=== PATIENT | male | born 1965 | race American Indian/Alaskan Native ===

== ENCOUNTER 2020-06-21 11:28 | Inpatient (IN) | payer MEDICAID, OTHER ==
[2020-06-21] MEDS ORDERED: Sodium Chloride 0.9% 1,000 ML IV ONE (11:42)
[2020-06-21] MEDS ORDERED: diphenhydrAMINE 50 MG/ML SDV IVPUSH ONE (11:42)
[2020-06-21 12:42] LABS: ANION GAP 16.8 mEq/L (7-13); CHLORIDE,CL 94 mmol/L (98-107); SODIUM,NA 132 mmol/L (136-145)
--- NOTE | 2020-06-21 13:23 | CR ---
PROCEDURE INFORMATION: Exam: XR Left Ribs with PA Chest, 3 Views Exam date and time: 06/21/2020 12:32 PM Age: 55 years old Clinical indication: Injury or trauma; Rib area, left side; Blunt trauma; Patient HX: Fall, left chest injury/pain TECHNIQUE: Imaging protocol: XR Left ribs 3 views with PA chest. COMPARISON: CR RIBS LT + CHEST 06/17/2009 10:42 AM FINDINGS: Lungs: Unremarkable. No consolidation. Pleural space: Unremarkable. No pleural effusion. No pneumothorax. Heart/Mediastinum: Unremarkable. No cardiomegaly. Bones/joints: Unremarkable. IMPRESSION: No acute findings.
--- NOTE | 2020-06-21 13:26 | CR ---
PROCEDURE INFORMATION: Exam: XR Right Hand Exam date and time: 06/21/2020 12:55 PM Age: 55 years old Clinical indication: Injury or trauma; Fall; Blunt trauma (contusions or hematomas); Right; Patient HX: RT hand injury with soft tissue infection TECHNIQUE: Imaging protocol: XR Right hand. Views: 3 or more views. COMPARISON: No relevant prior studies available. FINDINGS: Bones/joints: No acute bony injury. Probable old boxer's fracture of the 5th metacarpal. Soft tissues: Nonspecific soft tissue swelling. IMPRESSION: No acute bony injury.
--- NOTE | 2020-06-21 13:42 | EDM.PDOC ---
Scribed by Isis Jaime 06/21/20 [id number] for Gatito Cali MD ED HPI GENERAL MEDICAL PROBLEM - General Chief Complaint: Skin Complaint Stated Complaint: SORES AND SWELLING ON BOTH HANDS Time Seen by Provider: 06/21/20 11:38 Source of Information: Reports: Patient, RN, RN Notes Reviewed History Limitations: Reports: No Limitations - History of Present Illness INITIAL COMMENTS - FREE TEXT/NARRATIVE: Patient presents to ED by POV with complaint of falling onto hands x3 days ago, now the right hand is infected. He fell onto dirty surface with oil and dirt. He also has dried ruptured blisters or "sores" on the left hand, right upper arm, and the back of his neck. Denies fever, chills, cough, or COVID exposure. Pt also c/o left rib pain from the fall 3 days ago. He wanted to see a doctor as soon as the right hand felt infected, but has no car and could not get anyone to bring him to town for medical care. Onset: Gradual Duration: Getting Worse Location: Reports: Upper Extremity, Left, Upper Extremity, Right Quality: Reports: Ache Severity: Severe Improves with: Reports: None Worsens with: Reports: None Associated Symptoms: Reports: No Other Symptoms Bilateral Hand Pain Score (Numeric/FACES): 5 - Related Data Allergies Allergy/AdvReac Type Severity Reaction Status Date / Time naproxen [From Naprosyn] Allergy Chest Pain Verified 06/21/20 11:37 Home Meds: Home Meds Ibuprofen [Advil] 600 mg PO DAILY 02/26/16 [History] Past Medical History HEENT History: Reports: None Cardiovascular History: Reports: Hypertension Respiratory History: Reports: None Gastrointestinal History: Reports: None Genitourinary History: Reports: None Musculoskeletal History: Reports: Gout Neurological History: Reports: None Psychiatric History: Reports: None Endocrine/Metabolic History: Reports: None Hematologic History: Reports: None Immunologic History: Reports: None Oncologic (Cancer) History: Reports: None Dermatologic History: Reports: None - Infectious Disease History Infectious Disease History: Reports: None - Past Surgical History Head Surgeries/Procedures: Reports: None HEENT Surgical History: Reports: None Cardiovascular Surgical History: Reports: None Respiratory Surgical History: Reports: None GI Surgical History: Reports: Appendectomy Male Surgical History: Reports: None Endocrine Surgical History: Reports: None Neurological Surgical History: Reports: None Musculoskeletal Surgical History: Reports: None Oncologic Surgical History: Reports: None Dermatological Surgical History: Reports: None Social & Family History - Family History Family Medical History: Noncontributory - Caffeine Use Caffeine Use: Reports: Coffee, Soda - Living Situation & Occupation Living situation: Reports: with Family ED ROS GENERAL - Review of Systems Review Of Systems: Comprehensive ROS is negative, except as noted in HPI. ED EXAM, SKIN/RASH Exam: See Below Exam Limited By: No Limitations General Appearance: Alert, No Apparent Distress, Thin, Other (Unkept appearance) Eye Exam: Bilateral Eye: Normal Inspection Ears: Normal External Exam Nose: Normal Inspection, Normal Mucosa, No Blood Throat/Mouth: Normal Inspection, Normal Voice, No Airway Compromise Head: Atraumatic, Normocephalic Neck: Non-Tender, Full Range of Motion. No: Lymphadenopathy (L), Lymphadenopathy (R) Respiratory/Chest: No Respiratory Distress, Lungs Clear, Normal Breath Sounds, No Accessory Muscle Use, Chest Non-Tender Cardiovascular: Regular Rate, Rhythm, Tachycardia GI/Abdominal: Normal Bowel Sounds, Soft, Non-Tender Back Exam: Normal Inspection Extremities: No Pedal Edema, Normal Capillary Refill, Other (Right hand with gen eralized soft tissue swelling, no deformity, 2.5cm diameter palmar bulla that is cloudy with purulent effusion, red streak from right wrist to elbow. Left hand has a dried crusted 1.5cm divina. ruptured bulla near the wrist, without regional swelling or erythema and similar dried lesions on the upper right arm and the back of his neck.) Neurological: Alert, Oriented, Normal Gait, No Motor/Sensory Deficits Psychiatric: Normal Mood Skin: No Rash ED SKIN PROCEDURES - I&D Site: Right palmar hand Skin Prep: Saline Local Anesthesia: Lidocaine: Other (none) Area Incised With: Needle Drainage: Purulent, Moderate Amount Probed to Break Up Loculations: No Sterile Dressinx4(s) Complications: No Progress/Comments: Culture obtained, ordered and sent to lab. Course - Vital Signs Last Recorded V/S: Last Vital Signs Temp 99.9 F 06/21/20 11:36 Pulse 107 H 06/21/20 11:36 Resp 18 06/21/20 11:36 BP 144/95 H 06/21/20 11:36 Pulse Ox 97 06/21/20 11:36 - Orders/Labs/Meds Orders: Active Orders 24 hr Category Date Time Status CULTURE BLOOD [BC] Stat Lab 06/21/20 11:52 Received CULTURE BLOOD [BC] Stat Lab 06/21/20 11:58 Received CULTURE WOUND [RM] Stat Lab 06/21/20 11:47 Received Blood Culture x2 Reflex Set [OM.PC] Stat Oth 06/21/20 11:41 Ordered Labs: Laboratory Tests 06/21/20 06/21/20 06/21/20 Range/Units 11:52 11:52 11:52 WBC 17.7 H (5.0-10.0) 10^3/uL RBC 5.07 (4.6-6.2) 10^6/uL Hgb 15.8 D (14.0-18.0) g/dL Hct 46.1 (40.0-54.0) % MCV 90.9 D (80-100) fL MCH 31.2 (27.0-34.0) pg MCHC 34.3 (33.0-35.0) g/dL Plt Count 398 (150-450) 10^3/uL Neut % (Auto) 80.7 H (42.2-75.2) % Lymph % (Auto) 10.6 L (20.5-50.1) % Eddy % (Auto) 6.9 (2-8) % Eos % (Auto) 1.4 (1.0-3.0) % Baso % (Auto) 0.4 (0.0-1.0) % Sodium 132 L (136-145) mmol/L Potassium 3.8 (3.5-5.1) mmol/L Chloride 94 L (98-107) mmol/L Carbon Dioxide 25 (21-32) mmol/L Anion Gap 16.8 H (7-13) mEq/L BUN 9 (7-18) mg/dL Creatinine 0.75 (0.70-1.30) mg/dL Est Cr Clr Drug Dosing 102.31 mL/min Estimated GFR (MDRD) > 60 BUN/Creatinine Ratio 12.0 (No establ ref range) Glucose 116 H (74-99) mg/dL Lactic Acid 1.2 (0.4-2.0) mmol/L Calcium 9.2 (8.5-10.1) mg/dL Total Bilirubin 0.9 (0.2-1.0) mg/dL AST 27 (15-37) U/L ALT 31 (16-63) U/L Alkaline Phosphatase 117 H (46-116) U/L C-Reactive Protein 17.2 H (0.0-0.9) mg/dL Total Protein 8.6 H (6.4-8.2) g/dL Albumin 3.6 (3.4-5.0) g/dL Globulin 5.0 Albumin/Globulin Ratio 0.7 SARS CoV-2 RNA Rapid BIMAL (NEGATIVE) 06/21/20 Range/Units 13:12 WBC (5.0-10.0) 10^3/uL RBC (4.6-6.2) 10^6/uL Hgb (14.0-18.0) g/dL Hct (40.0-54.0) % MCV (80-100) fL MCH (27.0-34.0) pg MCHC (33.0-35.0) g/dL Plt Count (150-450) 10^3/uL Neut % (Auto) (42.2-75.2) % Lymph % (Auto) (20.5-50.1) % Eddy % (Auto) (2-8) % Eos % (Auto) (1.0-3.0) % Baso % (Auto) (0.0-1.0) % Sodium (136-145) mmol/L Potassium (3.5-5.1) mmol/L Chloride (98-107) mmol/L Carbon Dioxide (21-32) mmol/L Anion Gap (7-13) mEq/L BUN (7-18) mg/dL Creatinine (0.70-1.30) mg/dL Est Cr Clr Drug Dosing mL/min Estimated GFR (MDRD) BUN/Creatinine Ratio (No establ ref range) Glucose (74-99) mg/dL Lactic Acid (0.4-2.0) mmol/L Calcium (8.5-10.1) mg/dL Total Bilirubin (0.2-1.0) mg/dL AST (15-37) U/L ALT (16-63) U/L Alkaline Phosphatase (46-116) U/L C-Reactive Protein (0.0-0.9) mg/dL Total Protein (6.4-8.2) g/dL Albumin (3.4-5.0) g/dL Globulin Albumin/Globulin Ratio SARS CoV-2 RNA Rapid BIMAL Negative (NEGATIVE) Meds: Medications Discontinued Medications Generic Name Dose Route Start Last Admin Trade Name Joseph PRN Reason Stop Dose Admin Diphenhydramine HCl 25 mg 06/21/20 11:42 06/21/20 12:00 Benadryl IVPUSH 06/21/20 11:43 25 mg ONETIME ONE Administration Sodium Chloride 1,000 mls @ 999 mls/hr 06/21/20 11:42 06/21/20 12:00 Normal Saline IV 06/21/20 12:42 999 mls/hr .BOLUS ONE Administration Vancomycin HCl 1 gm/ Sodium 250 mls @ 167 mls/hr 06/21/20 11:42 06/21/20 12:00 Chloride IV 06/21/20 13:11 167 mls/hr ONETIME ONE Administration - Radiology Interpretation Free Text/Narrative:: [facility] Final Radiology Report Call: [phone] assistance Online chat: [email or web address] Name: VINAYAK AHUMADA Age: 55Years M Date: 06/21/2020 SSN: -- : [id number] Study: CR RIBS 2V W CHEST LT Requesting Physician: GATITO CALI Images: 4 Addl Studies: Provided Clinical History: fall, left chest injury/pain Contrast: Contrast Medium: Contrast Amount: Contrast Method: CONFIDENTIALITY STATEMENT This report is intended only for use by the referring physician, and only in accordance with law. If you received this in error, call [phone]. Page 1 of 1 PROCEDURE INFORMATION: Exam: XR Left Ribs with PA Chest, 3 Views Exam date and time: 06/21/2020 12:32 PM Age: 55 years old Clinical indication: Injury or trauma; Rib area, left side; Blunt trauma; Patient HX: Fall, left chest injury/pain TECHNIQUE: Imaging protocol: XR Left ribs 3 views with PA chest. COMPARISON: CR RIBS LT + CHEST 06/17/2009 10:42 AM FINDINGS: Lungs: Unremarkable. No consolidation. Pleural space: Unremarkable. No pleural effusion. No pneumothorax. Heart/Mediastinum: Unremarkable. No cardiomegaly. Bones/joints: Unremarkable. IMPRESSION: No acute findings. Thank you for allowing us to participate in the care of your patient. Dictated and Authenticated by: Miller Billingsley MD 06/21/2020 1:23 PM Central Time ([place] & [place]) [facility] Final Radiology Report Call: [phone] assistance Online chat: [email or web address] Name: VINAYAK AHUMADA Age: 55Years M Date: 06/21/2020 SSN: -- : [id number] Study: CR HAND COMP MIN 3V RT Requesting Physician: GATITO CALI Images: 3 Addl Studies: Provided Clinical History: Rt hand injury with soft tissue infection Contrast: Contrast Medium: Contrast Amount: Contrast Method: CONFIDENTIALITY STATEMENT This report is intended only for use by the referring physician, and only in accordance with law. If you received this in error, call [phone]. Page 1 of 1 PROCEDURE INFORMATION: Exam: XR Right Hand Exam date and time: 06/21/2020 12:55 PM Age: 55 years old Clinical indication: Injury or trauma; Fall; Blunt trauma (contusions or hematomas); Right; Patient HX: RT hand injury with soft tissue infection TECHNIQUE: Imaging protocol: XR Right hand. Views: 3 or more views. COMPARISON: No relevant prior studies available. FINDINGS: Bones/joints: No acute bony injury. Probable old boxer's fracture of the 5th metacarpal. Soft tissues: Nonspecific soft tissue swelling. IMPRESSION: No acute bony injury. Thank you for allowing us to participate in the care of your patient. Dictated and Authenticated by: Miller Billingsley MD 06/21/2020 1:26 PM Central Time ([place] & [place]) Departure - Departure Time of Disposition: 13:34 (admitted to Dr. Mcdonald) Disposition: Admitted As Inpatient 68 Condition: Good Clinical Impression: Cellulitis of right hand - Discharge Information *PRESCRIPTION DRUG MONITORING PROGRAM REVIEWED*: Not Applicable *COPY OF PRESCRIPTION DRUG MONITORING REPORT IN PATIENT THALIA: Not Applicable Forms: ED Department Discharge Sepsis Event Note (ED) - Evaluation Sepsis Screening Result: No Definite Risk - Focused Exam Vital Signs: Vital Signs Temp Pulse Resp BP Pulse Ox 06/21/20 11:36 99.9 F 107 H 18 144/95 H 97 - My Orders Last 24 Hours: My Active Orders 06/21/20 11:41 Blood Culture x2 Reflex Set [OM.PC] Stat 06/21/20 11:47 CULTURE WOUND [RM] Stat 06/21/20 11:52 CULTURE BLOOD [BC] Stat 06/21/20 11:58 CULTURE BLOOD [BC] Stat - Assessment/Plan Last 24 Hours: My Active Orders 06/21/20 11:41 Blood Culture x2 Reflex Set [OM.PC] Stat 06/21/20 11:47 CULTURE WOUND [RM] Stat 06/21/20 11:52 CULTURE BLOOD [BC] Stat 06/21/20 11:58 CULTURE BLOOD [BC] Stat I have read and agree with the documentation that has been completed regarding this visit. By signing this record, I attest that the documentation was completed in my physical presence and is an accurate record of the encounter.
[2020-06-21] MEDS ORDERED: fentaNYL 100 MCG/2 ML SDV IVPUSH ONE (14:24)
[2020-06-21] MEDS ORDERED: Ondansetron 4 MG Tab.DIS PO PRN (14:39)
[2020-06-21] MEDS ORDERED: Docusate Sodium 100 MG Cap PO PRN (14:39)
[2020-06-21] MEDS ORDERED: Ondansetron 4 MG/2 ML SDV IVPUSH PRN (14:39)
[2020-06-21] MEDS ORDERED: Acetaminophen 325 MG Tab PO PRN (14:39)
[2020-06-21] MEDS: oxyCODONE 5 MG Tab PO PRN (14:48)
[2020-06-21] MEDS: Piperacillin/Tazobactam 3.375 GM in Sodium Chloride 0.9% 100 ML IV SCH ×2 (14:57→20:02)
--- NOTE | 2020-06-21 14:59 | PCM.HP ---
H&P History of Present Illness - General Date of Service: 06/21/20 Admit Problem/Dx: Admission Diagnosis/Problem Admission Diagnosis/Problem Cellulitis Source of Information: Patient - History of Present Illness Initial Comments - Free Text/Narative: 55-year-old with a history of "gout". he has a family history and personal history of joint swelling, redness in those fingers and elbows. The patient fell about 3 days ago. Developed swelling, redness, blistery areas on both hands. Similar area also presented in the back of the neck. There is associated pussy drainage. No fever. Has pain in the hand and left chest wall. Had chills. Bilateral Hand Pain Score (Numeric/FACES): 5 - Related Data Allergies/Adverse Reactions: Allergies Allergy/AdvReac Type Severity Reaction Status Date / Time naproxen [From Naprosyn] Allergy Chest Pain Verified 06/21/20 11:37 Home Medications: Home Meds Ibuprofen [Advil] 600 mg PO DAILY 02/26/16 [History] Past Medical History HEENT History: Reports: None Cardiovascular History: Reports: Hypertension Respiratory History: Reports: None Gastrointestinal History: Reports: None Genitourinary History: Reports: None Musculoskeletal History: Reports: Gout Neurological History: Reports: None Psychiatric History: Reports: Addiction Endocrine/Metabolic History: Reports: None Hematologic History: Reports: None Immunologic History: Reports: None Oncologic (Cancer) History: Reports: None Dermatologic History: Reports: Cellulitis - Infectious Disease History Infectious Disease History: Reports: None - Past Surgical History Head Surgeries/Procedures: Reports: None HEENT Surgical History: Reports: None Cardiovascular Surgical History: Reports: None Respiratory Surgical History: Reports: None GI Surgical History: Reports: Appendectomy Male Surgical History: Reports: None Endocrine Surgical History: Reports: None Neurological Surgical History: Reports: None Musculoskeletal Surgical History: Reports: None, Other (See Below) Other Musculoskeletal Surgeries/Procedures:: left leg "crushed" Oncologic Surgical History: Reports: None Dermatological Surgical History: Reports: None Social & Family History - Family History Family Medical History: Noncontributory - Tobacco Use Tobacco Use Status *Q: Current Every Day Tobacco User Years of Tobacco use: 25 Packs/Tins Daily: 0.5 - Caffeine Use Caffeine Use: Reports: Coffee - Alcohol Use Days Per Week of Alcohol Use: 7 Number of Drinks Per Day: 2 Total Drinks Per Week: 14 - Recreational Drug Use Recreational Drug Use: Yes Drug Use in Last 12 Months: Yes Recreational Drug Type: Reports: Marijuana/Hashish Recreational Drug Use Frequency: Weekly - Living Situation & Occupation Living situation: Reports: with Family H&P Review of Systems - Review of Systems: Review Of Systems: See Below General: Reports: Chills. Denies: Fever Pulmonary: Denies: Shortness of Breath Cardiovascular: Denies: Chest Pain, Edema Musculoskeletal: Denies: Neck Pain Skin: Reports: Lesions (on right and left hand back of the neck) Psychiatric: Denies: Confusion Exam - Exam Exam: See Below - Vital Signs Vital Signs: Last Vital Signs Temp 99.5 F 06/21/20 13:45 Pulse 79 06/21/20 13:45 Resp 20 06/21/20 13:45 BP 148/111 H 06/21/20 13:45 Pulse Ox 100 06/21/20 13:45 Weight: 138 lb 9.6 oz - Exam General: Alert, Severe Distress Neck: Supple Lungs: Clear to Auscultation, Normal Respiratory Effort Cardiovascular: Regular Rate, Regular Rhythm GI/Abdominal Exam: Normal Bowel Sounds, Soft, Non-Tender Extremities: No Pedal Edema Skin: Other (abscess appearing lesions with some crusting over the top of them on the right and left hand and back of the neck) - Patient Data Lab Results Last 24 hrs: Laboratory Results - last 24 hr 06/21/20 06/21/20 06/21/20 Range/Units 11:52 11:52 11:52 WBC 17.7 H (5.0-10.0) 10^3/uL RBC 5.07 (4.6-6.2) 10^6/uL Hgb 15.8 D (14.0-18.0) g/dL Hct 46.1 (40.0-54.0) % MCV 90.9 D (80-100) fL MCH 31.2 (27.0-34.0) pg MCHC 34.3 (33.0-35.0) g/dL Plt Count 398 (150-450) 10^3/uL Neut % (Auto) 80.7 H (42.2-75.2) % Lymph % (Auto) 10.6 L (20.5-50.1) % Thurston % (Auto) 6.9 (2-8) % Eos % (Auto) 1.4 (1.0-3.0) % Baso % (Auto) 0.4 (0.0-1.0) % Sodium 132 L (136-145) mmol/L Potassium 3.8 (3.5-5.1) mmol/L Chloride 94 L (98-107) mmol/L Carbon Dioxide 25 (21-32) mmol/L Anion Gap 16.8 H (7-13) mEq/L BUN 9 (7-18) mg/dL Creatinine 0.75 (0.70-1.30) mg/dL Est Cr Clr Drug Dosing 102.31 mL/min Estimated GFR (MDRD) > 60 BUN/Creatinine Ratio 12.0 (No establ ref range) Glucose 116 H (74-99) mg/dL Lactic Acid 1.2 (0.4-2.0) mmol/L Calcium 9.2 (8.5-10.1) mg/dL Total Bilirubin 0.9 (0.2-1.0) mg/dL AST 27 (15-37) U/L ALT 31 (16-63) U/L Alkaline Phosphatase 117 H (46-116) U/L C-Reactive Protein 17.2 H (0.0-0.9) mg/dL Total Protein 8.6 H (6.4-8.2) g/dL Albumin 3.6 (3.4-5.0) g/dL Globulin 5.0 Albumin/Globulin Ratio 0.7 SARS CoV-2 RNA Rapid BIMAL (NEGATIVE) 06/21/20 Range/Units 13:12 WBC (5.0-10.0) 10^3/uL RBC (4.6-6.2) 10^6/uL Hgb (14.0-18.0) g/dL Hct (40.0-54.0) % MCV (80-100) fL MCH (27.0-34.0) pg MCHC (33.0-35.0) g/dL Plt Count (150-450) 10^3/uL Neut % (Auto) (42.2-75.2) % Lymph % (Auto) (20.5-50.1) % Thurston % (Auto) (2-8) % Eos % (Auto) (1.0-3.0) % Baso % (Auto) (0.0-1.0) % Sodium (136-145) mmol/L Potassium (3.5-5.1) mmol/L Chloride (98-107) mmol/L Carbon Dioxide (21-32) mmol/L Anion Gap (7-13) mEq/L BUN (7-18) mg/dL Creatinine (0.70-1.30) mg/dL Est Cr Clr Drug Dosing mL/min Estimated GFR (MDRD) BUN/Creatinine Ratio (No establ ref range) Glucose (74-99) mg/dL Lactic Acid (0.4-2.0) mmol/L Calcium (8.5-10.1) mg/dL Total Bilirubin (0.2-1.0) mg/dL AST (15-37) U/L ALT (16-63) U/L Alkaline Phosphatase (46-116) U/L C-Reactive Protein (0.0-0.9) mg/dL Total Protein (6.4-8.2) g/dL Albumin (3.4-5.0) g/dL Globulin Albumin/Globulin Ratio SARS CoV-2 RNA Rapid BIMAL Negative (NEGATIVE) Result Diagrams: 06/21/20 11:52 06/21/20 11:52 - Problem List (1) Cellulitis of right hand SNOMED Code(s): 17362623 ICD Code: L03.113 - CELLULITIS OF RIGHT UPPER LIMB Status: Acute Current Visit: Yes Problem List Initiated/Reviewed/Updated: Yes Orders Last 24hrs: Active Orders 24 hr Category Date Time Status Admission Diagnosis [ADT] Routine ADT 06/21/20 13:39 Ordered Patient Status [ADT] Routine ADT 06/21/20 13:39 Active Antiembolic Devices [RC] PER UNIT ROUTINE Care 06/21/20 14:40 Ordered Oxygen Therapy [RC] PRN Care 06/21/20 14:39 Ordered Peripheral IV Care [RC] . DIRECTED Care 06/21/20 14:40 Ordered Up ad Skye [RC] ASDIRECTED Care 06/21/20 14:39 Ordered VTE/DVT Education [RC] PER UNIT ROUTINE Care 06/21/20 14:39 Ordered Vital Signs [RC] Q4H Care 06/21/20 14:39 Ordered Regular Diet [DIET] Diet 06/21/20 Dinner Ordered BASIC METABOLIC PANEL,BMP [CHEM] AM Lab 06/22/20 05:11 Ordered CBC WITH AUTO DIFF [HEME] AM Lab 06/22/20 05:11 Ordered CULTURE BLOOD [BC] Stat Lab 06/21/20 11:52 Received CULTURE BLOOD [BC] Stat Lab 06/21/20 11:58 Received CULTURE WOUND [RM] Stat Lab 06/21/20 11:47 Received Acetaminophen [TylenoL] Med 06/21/20 14:39 Ordered 650 mg PO Q4H PRN Docusate Sodium [Colace] Med 06/21/20 14:39 Ordered 100 mg PO BID PRN Heparin Sodium Med 06/21/20 22:00 Ordered 5,000 units SUBCUT Q8HR Ibuprofen [Advil] Med 06/21/20 14:16 Ordered 600 mg PO Q6HR PRN Ondansetron [Zofran ODT] Med 06/21/20 14:39 Ordered 4 mg PO Q6H PRN Ondansetron [Zofran] Med 06/21/20 14:39 Ordered 4 mg IVPUSH Q4H PRN Pharmacy to Dose - Vancomycin Med 06/21/20 14:15 Ordered 1 dose .XX ASDIRECTED Piperacillin/Tazobactam [Zosyn] 3.375 gm Med 06/21/20 14:15 Ordered Sodium Chloride 0.9% [Normal Saline] 100 ml IV Q6H Sodium Chloride 0.9% [Saline Flush] Med 06/21/20 14:39 Ordered 10 ml FLUSH ASDIRECTED PRN Temazepam [Restoril] Med 06/21/20 14:39 Ordered 15 mg PO BEDTIME PRN oxyCODONE Med 06/21/20 14:17 Ordered 5 mg PO Q6H PRN Antiembolic Hose [OM.PC] Per Unit Routine Oth 06/21/20 14:39 Ordered Blood Culture x2 Reflex Set [OM.PC] Stat Oth 06/21/20 11:41 Ordered Peripheral IV Insertion Adult [OM.PC] Routine Oth 06/21/20 14:39 Ordered Resuscitation Status Routine Resus Stat 06/21/20 14:39 Ordered Medication Orders Acetaminophen (Tylenol) 650 mg PO Q4H PRN PRN Reason: Pain (Mild 1-3)/fever Docusate Sodium (Colace) 100 mg PO BID PRN PRN Reason: Constipation Heparin Sodium (Porcine) (Heparin Sodium) 5,000 units SUBCUT Q8HR MADELINE Piperacillin Sod/Tazobactam (Sod 3.375 gm/ Sodium Chloride) 100 mls @ 200 mls/hr IV Q6H MADELINE Ibuprofen (Motrin) 600 mg PO Q6HR PRN PRN Reason: moderate pain Ondansetron HCl (Zofran) 4 mg IVPUSH Q4H PRN PRN Reason: Nausea/Vomiting Ondansetron HCl (Zofran Odt) 4 mg PO Q6H PRN PRN Reason: nausea, able to take PO Oxycodone HCl (Oxycodone) 5 mg PO Q6H PRN PRN Reason: severe pain Last Admin: 06/21/20 14:48 Dose: 5 mg Documented by: EMMANUEL Sodium Chloride (Saline Flush) 10 ml FLUSH ASDIRECTED PRN PRN Reason: Keep Vein Open Temazepam (Restoril) 15 mg PO BEDTIME PRN PRN Reason: Sleep Vancomycin HCl (Pharmacy To Dose - Vancomycin) 1 dose .XX ASDIRECTED [facility] Assessment/Plan Comment:: 55-year-old presented with the abscess appearing lesions on bilateral hand, back of the neck. Concern for bacteremia, cellulitis Will obtain blood cultures Incision and drainage was done in the ER on the right hand, I attempted to do I&D on the left hand lesion but that started to drain spontaneously before incision. Follow wound cultures Empirically treat with Zosyn and vancomycin Concern for MRSA History of joint inflammatory disease I doubt that this is gout Recommended the patient to follow-up with rheumatology as outpatient DVT prophylaxis with subcutaneous heparin
[2020-06-21] MEDS: Ibuprofen 600 MG Tab PO PRN (17:21)
[2020-06-21] MEDS: Sodium Chloride 0.9% 10 ML Syringe FLUSH PRN ×3 (19:59→22:50)
[2020-06-21] MEDS ORDERED: Heparin Sodium 5,000 Units/ML Vial SUBCUT SCH (22:00)
[2020-06-22] MEDS ORDERED: Enoxaparin 60 MG/0.6 ML Syringe SUBCUT SCH (00:05)
[2020-06-22] MEDS ORDERED: Aspirin 325 MG Tab PO SCH (00:15)
[2020-06-22] MEDS: oxyCODONE 5 MG Tab PO PRN ×3 (00:23→21:14)
[2020-06-22] MEDS: Temazepam 15 MG Cap PO PRN ×2 (00:23→21:14)
[2020-06-22] MEDS: Sodium Chloride 0.9% 10 ML Syringe FLUSH PRN ×5 (02:15→19:31)
[2020-06-22] MEDS: Piperacillin/Tazobactam 3.375 GM in Sodium Chloride 0.9% 100 ML IV SCH ×4 (02:16→21:11)
[2020-06-22] MEDS: Heparin Sodium 5,000 Units/ML Vial SUBCUT SCH ×3 (05:41→22:09)
[2020-06-22 07:20] LABS: ANION GAP 12.6 mEq/L (7-13); CHLORIDE,CL 102 mmol/L (98-107); SODIUM,NA 138 mmol/L (136-145)
[2020-06-22] MEDS: Ibuprofen 600 MG Tab PO PRN ×3 (08:48→21:13)
--- NOTE | 2020-06-22 14:12 | PCM.PN ---
- General Info Date of Service: 06/22/20 Admission Dx/Problem (Free Text): Admission Diagnosis/Problem Admission Diagnosis/Problem Cellulitis Functional Status: Reports: Pain Controlled - Review of Systems General: Denies: Fever Pulmonary: Denies: Shortness of Breath Cardiovascular: Denies: Chest Pain Gastrointestinal: Denies: Abdominal Pain Musculoskeletal: Reports: Foot Pain (b/l , worse when putting wght on ) - Patient Data Vitals - Most Recent: Last Vital Signs Temp 98.3 F 06/22/20 08:29 Pulse 77 06/22/20 08:29 Resp 20 06/22/20 08:29 BP 144/80 H 06/22/20 08:29 Pulse Ox 99 06/22/20 08:29 Weight - Most Recent: 138 lb 9.6 oz I&O - Last 24 Hours: Intake & Output 06/21/20 06/22/20 06/22/20 22:59 06:59 14:59 Intake Total 785 350 Balance 785 350 Lab Results Last 24 Hours: Laboratory Results - last 24 hr 06/22/20 06/22/20 06/22/20 Range/Units 06:08 06:08 10:57 WBC 14.9 H (5.0-10.0) 10^3/uL RBC 4.39 L (4.6-6.2) 10^6/uL Hgb 13.7 L D (14.0-18.0) g/dL Hct 41.6 (40.0-54.0) % MCV 94.8 D (80-100) fL MCH 31.2 (27.0-34.0) pg MCHC 32.9 L (33.0-35.0) g/dL Plt Count 357 (150-450) 10^3/uL Neut % (Auto) 71.8 (42.2-75.2) % Lymph % (Auto) 15.9 L (20.5-50.1) % [place] % (Auto) 6.9 (2-8) % Eos % (Auto) 4.9 H (1.0-3.0) % Baso % (Auto) 0.5 (0.0-1.0) % Add Manual Diff Yes Neutrophils % (Manual) 69 (42-75) % Band Neutrophils % 3 % Lymphocytes % (Manual) 18 L (20-50) % Monocytes % (Manual) 2 (2-8) % Eosinophils % (Manual) 8 H (1-3) % Sodium 138 (136-145) mmol/L Potassium 3.6 (3.5-5.1) mmol/L Chloride 102 (98-107) mmol/L Carbon Dioxide 27 (21-32) mmol/L Anion Gap 12.6 (7-13) mEq/L BUN 8 (7-18) mg/dL Creatinine 0.78 (0.70-1.30) mg/dL Est Cr Clr Drug Dosing 97.39 mL/min Estimated GFR (MDRD) > 60 Glucose 94 (74-99) mg/dL Calcium 8.5 (8.5-10.1) mg/dL Vancomycin Trough 14.9 (10.0-20.0) ug/mL [place] Results Last 24 Hours: Microbiology 06/21/20 11:52 Aerobic Blood Culture - Preliminary Blood - Arm, Right NO GROWTH AFTER 1 DAY Anaerobic Blood Culture - Preliminary NO GROWTH AFTER 1 DAY 06/21/20 11:58 Aerobic Blood Culture - Preliminary Blood - Arm, Left NO GROWTH AFTER 1 DAY Anaerobic Blood Culture - Preliminary NO GROWTH AFTER 1 DAY 06/21/20 11:47 Wound Culture - Preliminary Hand, Right Med Orders - Current: Current Medications Acetaminophen (Tylenol) 650 mg PO Q4H PRN PRN Reason: Pain (Mild 1-3)/fever Docusate Sodium (Colace) 100 mg PO BID PRN PRN Reason: Constipation Heparin Sodium (Porcine) (Heparin Sodium) 5,000 units SUBCUT Q8HR [facility] Last Admin: 06/22/20 05:41 Dose: 5,000 units Documented by: Piperacillin Sod/Tazobactam (Sod 3.375 gm/ Sodium Chloride) 100 mls @ 200 mls/hr IV Q6H [facility] Last Admin: 06/22/20 08:38 Dose: 200 mls/hr Documented by: Vancomycin HCl 1 gm/ Sodium (Chloride) 250 mls @ 166.667 mls/hr IV Q8H [facility] Last Admin: 06/22/20 12:51 Dose: 166.667 mls/hr Documented by: Ibuprofen (Motrin) 600 mg PO Q6HR PRN PRN Reason: moderate pain Last Admin: 06/22/20 08:48 Dose: 600 mg Documented by: Ondansetron HCl (Zofran) 4 mg IVPUSH Q4H PRN PRN Reason: Nausea/Vomiting Ondansetron HCl (Zofran Odt) 4 mg PO Q6H PRN PRN Reason: nausea, able to take PO Oxycodone HCl (Oxycodone) 5 mg PO Q6H PRN PRN Reason: severe pain Last Admin: 06/22/20 00:23 Dose: 5 mg Documented by: Sodium Chloride (Saline Flush) 10 ml FLUSH ASDIRECTED PRN PRN Reason: Keep Vein Open Last Admin: 06/22/20 05:10 Dose: 10 ml Documented by: Temazepam (Restoril) 15 mg PO BEDTIME PRN PRN Reason: Sleep Last Admin: 06/22/20 00:23 Dose: 15 mg Documented by: Vancomycin HCl (Pharmacy To Dose - Vancomycin) 1 dose .XX ASDIRECTED [facility] Discontinued Medications Aspirin (Aspirin) 325 mg PO DAILY [facility] Diphenhydramine HCl (Benadryl) 25 mg IVPUSH ONETIME ONE Stop: 06/21/20 11:43 Last Admin: 06/21/20 12:00 Dose: 25 mg Documented by: Fentanyl (Sublimaze) 50 mcg IVPUSH ONETIME ONE Stop: 06/21/20 14:25 Last Admin: 06/21/20 14:45 Dose: 50 mcg Documented by: Heparin Sodium (Porcine) (Heparin Sodium) 5,000 units SUBCUT Q8HR [facility] Last Admin: 06/21/20 22:54 Dose: 5,000 units Documented by: Sodium Chloride (Normal Saline) 1,000 mls @ 999 mls/hr IV .BOLUS ONE Stop: 06/21/20 12:42 Last Admin: 06/21/20 12:00 Dose: 999 mls/hr Documented by: Vancomycin HCl 1 gm/ Sodium (Chloride) 250 mls @ 167 mls/hr IV ONETIME ONE Stop: 06/21/20 13:11 Last Admin: 06/21/20 12:00 Dose: 167 mls/hr Documented by: - Exam Quality Assessment: No: Supplemental Oxygen General: Alert, Oriented Neck: Supple Lungs: Clear to Auscultation, Normal Respiratory Effort Cardiovascular: Regular Rate, Regular Rhythm Extremities: No: Pedal Edema Skin: Warm, Dry, Other (resolving abscesses on hands, neck, between toes) Psy/Mental Status: Alert, Normal Affect, Normal Mood Sepsis Event Note - Evaluation Sepsis Screening Result: No Definite Risk - Focused Exam Vital Signs: Vital Signs Temp Pulse Resp BP BP Pulse Ox 06/22/20 08:29 98.3 F 77 20 144/80 H 99 06/22/20 04:00 96.5 F L 61 20 113/69 97 - Problem List & Annotations (1) Cellulitis of right hand SNOMED Code(s): 41396910 Code(s): L03.113 - CELLULITIS OF RIGHT UPPER LIMB Status: Acute Current Visit: Yes - Problem List Review Problem List Initiated/Reviewed/Updated: Yes - My Orders Last 24 Hours: My Active Orders 06/21/20 13:39 Admission Diagnosis [ADT] Routine Patient Status [ADT] Routine 06/21/20 14:15 Pharmacy to Dose - Vancomycin 1 dose .XX ASDIRECTED Piperacillin/Tazobactam [Zosyn] 3.375 gm Sodium Chloride 0.9% [Normal Saline] 100 ml IV Q6H 06/21/20 14:16 Ibuprofen [Motrin] 600 mg PO Q6HR PRN 06/21/20 14:17 oxyCODONE 5 mg PO Q6H PRN 06/21/20 14:39 Oxygen Therapy [RC] PRN Up ad [place] [RC] ASDIRECTED VTE/DVT Education [RC] PER UNIT ROUTINE Vital Signs [RC] Q4H Acetaminophen [TylenoL] 650 mg PO Q4H PRN Docusate Sodium [Colace] 100 mg PO BID PRN Ondansetron [Zofran ODT] 4 mg PO Q6H PRN Ondansetron [Zofran] 4 mg IVPUSH Q4H PRN Sodium Chloride 0.9% [Saline Flush] 10 ml FLUSH ASDIRECTED PRN Temazepam [Restoril] 15 mg PO BEDTIME PRN Antiembolic Hose [OM.PC] Per Unit Routine Peripheral IV Insertion Adult [OM.PC] Routine Resuscitation Status Routine 06/21/20 14:40 Antiembolic Devices [RC] PER UNIT ROUTINE Peripheral IV Care [RC] . DIRECTED 06/21/20 Dinner Regular Diet [DIET] 06/21/20 19:30 Vancomycin 1 gm Sodium Chloride 0.9% [Normal Saline (AdvBag)] 250 ml IV Q8H 06/22/20 06:00 Heparin Sodium 5,000 units SUBCUT Q8HR 06/23/20 05:15 BASIC METABOLIC PANEL,BMP [CHEM] AM CBC WITH AUTO DIFF [HEME] AM - Plan Plan:: 55-year-old presented with the abscess appearing lesions on bilateral hand, back of the neck. Concern for bacteremia, cellulitis blood cultures: pending Incision and drainage was done in the ER on the right hand, I attempted to do I&D on the left hand lesion but that started to drain spontaneously before incision. Follow wound cultures Concern for MRSA improving symptoms, improving WBC Empirically treat with Zosyn and vancomycin History of joint inflammatory disease I doubt that this is gout Recommended the patient to follow-up with rheumatology as outpatient continue NSAIDS for now DVT prophylaxis with subcutaneous heparin
[2020-06-23] MEDS: Piperacillin/Tazobactam 3.375 GM in Sodium Chloride 0.9% 100 ML IV SCH ×3 (01:58→10:08)
[2020-06-23] MEDS: Sodium Chloride 0.9% 10 ML Syringe FLUSH PRN (03:04)
[2020-06-23] MEDS: oxyCODONE 5 MG Tab PO PRN (03:04)
[2020-06-23] MEDS: Ibuprofen 600 MG Tab PO PRN (03:04)
[2020-06-23] MEDS: Heparin Sodium 5,000 Units/ML Vial SUBCUT SCH (05:50)
[2020-06-23 07:10] LABS: ANION GAP 13.8 mEq/L (7-13); CHLORIDE,CL 103 mmol/L (98-107); SODIUM,NA 138 mmol/L (136-145)
[2020-06-23 08:41] VITALS: BP 121/70; PULSE 61
--- NOTE | 2020-06-23 10:28 | PCM.DCSUM1 ---
Discharge Summary - Hospital Course Free Text/Narrative:: 55-year-old presented with the abscess appearing lesions on bilateral hand, back of the neck. Concern for bacteremia, cellulitis blood cultures:neg wound cx: strep improving symptoms, improving WBC Empirically treated with Zosyn and vancomycin will switch to keflex History of joint inflammatory disease I doubt that this is gout Recommended the patient to follow-up with rheumatology as outpatient continue NSAIDS for now Diagnosis: Stroke: No - Discharge Data Discharge Date: 06/23/20 Discharge Disposition: Home, Self-Care 01 Condition: Good - Referral to Home Health Primary Care Physician: PCP None - Discharge Diagnosis/Problem(s) (1) Cellulitis of right hand SNOMED Code(s): 96145406 ICD Code: L03.113 - CELLULITIS OF RIGHT UPPER LIMB Status: Acute Current Visit: Yes - Patient Instructions Diet: Heart Healthy Diet Activity: As Tolerated - Discharge Plan *PRESCRIPTION DRUG MONITORING PROGRAM REVIEWED*: Not Applicable *COPY OF PRESCRIPTION DRUG MONITORING REPORT IN PATIENT THALIA: Not Applicable Prescriptions/Med Rec: cephALEXin [Keflex] 500 mg PO TID #21 cap Home Medications: Home Meds Ibuprofen [Advil] 600 mg PO DAILY 02/26/16 [History] cephALEXin [Keflex] 500 mg PO TID #21 cap 06/23/20 [Rx] Oxygen Therapy Mode: Room Air - Discharge Summary/Plan Comment DC Time >30 min.: No - General Info Date of Service: 06/23/20 (.) - Review of Systems General: Reports: No Symptoms. Denies: Fever Pulmonary: Denies: Shortness of Breath Cardiovascular: Denies: Chest Pain Gastrointestinal: Denies: Abdominal Pain Genitourinary: Denies: Dysuria Neurological: Denies: Confusion - Patient Data Vitals - Most Recent: Last Vital Signs Temp 97.6 F 06/23/20 08:39 Pulse 61 06/23/20 08:39 Resp 20 06/23/20 08:39 BP 121/70 06/23/20 08:39 Pulse Ox 97 06/23/20 08:39 Weight - Most Recent: 138 lb 9.6 oz I&O - Last 24 hours: Intake & Output 06/22/20 06/23/20 06/23/20 22:59 06:59 14:59 Intake Total 500 240 Balance 500 240 Lab Results - Last 24 hrs: Laboratory Results - last 24 hr 06/22/20 06/23/20 06/23/20 Range/Units 10:57 06:04 06:04 WBC 12.3 H (5.0-10.0) 10^3/uL RBC 4.11 L (4.6-6.2) 10^6/uL Hgb 12.9 L (14.0-18.0) g/dL Hct 39.2 L (40.0-54.0) % MCV 95.4 (80-100) fL MCH 31.4 (27.0-34.0) pg MCHC 32.9 L (33.0-35.0) g/dL Plt Count 325 (150-450) 10^3/uL Neut % (Auto) 66.5 (42.2-75.2) % Lymph % (Auto) 17.6 L (20.5-50.1) % [place] % (Auto) 8.4 H (2-8) % Eos % (Auto) 7.1 H (1.0-3.0) % Baso % (Auto) 0.4 (0.0-1.0) % Sodium 138 (136-145) mmol/L Potassium 3.8 (3.5-5.1) mmol/L Chloride 103 (98-107) mmol/L Carbon Dioxide 25 (21-32) mmol/L Anion Gap 13.8 H (7-13) mEq/L BUN 8 (7-18) mg/dL Creatinine 0.77 (0.70-1.30) mg/dL Est Cr Clr Drug Dosing 98.66 mL/min Estimated GFR (MDRD) > 60 Glucose 93 (74-99) mg/dL Calcium 8.3 L (8.5-10.1) mg/dL Vancomycin Trough 14.9 (10.0-20.0) ug/mL [place]RELL Results - Last 24 hrs: Microbiology 06/21/20 11:47 Wound Culture - Final Hand, Right Streptococcus Group A 06/21/20 11:52 Aerobic Blood Culture - Preliminary Blood - Arm, Right NO GROWTH AFTER 1 DAY Anaerobic Blood Culture - Preliminary NO GROWTH AFTER 1 DAY 06/21/20 11:58 Aerobic Blood Culture - Preliminary Blood - Arm, Left NO GROWTH AFTER 1 DAY Anaerobic Blood Culture - Preliminary NO GROWTH AFTER 1 DAY Med Orders - Current: Current Medications Acetaminophen (Tylenol) 650 mg PO Q4H PRN PRN Reason: Pain (Mild 1-3)/fever Cephalexin (Keflex) 500 mg PO TID [facility] Docusate Sodium (Colace) 100 mg PO BID PRN PRN Reason: Constipation Heparin Sodium (Porcine) (Heparin Sodium) 5,000 units SUBCUT Q8HR [facility] Last Admin: 06/23/20 05:50 Dose: 5,000 units Documented by: Ibuprofen (Motrin) 600 mg PO Q6HR PRN PRN Reason: moderate pain Last Admin: 06/23/20 03:04 Dose: 600 mg Documented by: Ondansetron HCl (Zofran) 4 mg IVPUSH Q4H PRN PRN Reason: Nausea/Vomiting Ondansetron HCl (Zofran Odt) 4 mg PO Q6H PRN PRN Reason: nausea, able to take PO Oxycodone HCl (Oxycodone) 5 mg PO Q6H PRN PRN Reason: severe pain Last Admin: 06/23/20 03:04 Dose: 5 mg Documented by: Sodium Chloride (Saline Flush) 10 ml FLUSH ASDIRECTED PRN PRN Reason: Keep Vein Open Last Admin: 06/23/20 03:04 Dose: 10 ml Documented by: Temazepam (Restoril) 15 mg PO BEDTIME PRN PRN Reason: Sleep Last Admin: 06/22/20 21:14 Dose: 15 mg Documented by: Discontinued Medications Aspirin (Aspirin) 325 mg PO DAILY [facility] Diphenhydramine HCl (Benadryl) 25 mg IVPUSH ONETIME ONE Stop: 06/21/20 11:43 Last Admin: 06/21/20 12:00 Dose: 25 mg Documented by: Fentanyl (Sublimaze) 50 mcg IVPUSH ONETIME ONE Stop: 06/21/20 14:25 Last Admin: 06/21/20 14:45 Dose: 50 mcg Documented by: Heparin Sodium (Porcine) (Heparin Sodium) 5,000 units SUBCUT Q8HR [facility] Last Admin: 06/21/20 22:54 Dose: 5,000 units Documented by: Sodium Chloride (Normal Saline) 1,000 mls @ 999 mls/hr IV .BOLUS ONE Stop: 06/21/20 12:42 Last Admin: 06/21/20 12:00 Dose: 999 mls/hr Documented by: Vancomycin HCl 1 gm/ Sodium (Chloride) 250 mls @ 167 mls/hr IV ONETIME ONE Stop: 06/21/20 13:11 Last Admin: 06/21/20 12:00 Dose: 167 mls/hr Documented by: Piperacillin Sod/Tazobactam (Sod 3.375 gm/ Sodium Chloride) 100 mls @ 200 mls/hr IV Q6H [facility] Last Admin: 06/23/20 10:08 Dose: Not Given Documented by: Vancomycin HCl 1 gm/ Sodium (Chloride) 250 mls @ 166.667 mls/hr IV Q8H [facility] Last Admin: 06/23/20 03:04 Dose: 166.667 mls/hr Documented by: Vancomycin HCl (Pharmacy To Dose - Vancomycin) 1 dose .XX ASDIRECTED [facility] - Exam General: Reports: Alert, Oriented Lungs: Reports: Clear to Auscultation, Normal Respiratory Effort Cardiovascular: Reports: Regular Rate, Regular Rhythm Skin: Reports: Other (abscesses are draining, cellulitis around them resolved) Discharge Operative/Procedures - Procedures Performed I&D Site: Right palmar hand
[2020-06-23] MEDS ORDERED: Cephalexin 500 MG Cap PO SCH (14:00)
== END 2020-06-23 11:00 | disposition home or self-care (01) | DRG 603 ==
LOC: DL.ED 11:28 → DL.MS 13:39
PROVIDERS: ADMIT Internal Medicine; ATTEND Internal Medicine
PROC: 0H9FXZZ Drainage of Right Hand Skin, External Approach (ICD-10-PCS; principal; 2020-06-21)
DX: L03.113 Cellulitis of right upper limb (principal); R78.81 Bacteremia; W19.XXXA Unspecified fall, initial encounter; I10 Essential (primary) hypertension; A49.02 Methicillin resistant Staphylococcus aureus infection, unspecified site; Z87.39 Personal history of other diseases of the musculoskeletal system and connective tissue; Z79.01 Long term (current) use of anticoagulants; Z79.82 Long term (current) use of aspirin; Z87.2 Personal history of diseases of the skin and subcutaneous tissue; Z88.6 Allergy status to analgesic agent; Z20.828 Contact with and (suspected) exposure to other viral communicable diseases
CPT/HCPCS: 10060; 36415; 71101-LT; 73130-RT; 80048; 80053; 80202; 83605; 85025; 86140; 87040; 87070; 87077; 96365; 96366; 96375; 99284; 99284-25; A9270-GY; J1200; J1644; J2543; J3010; J3370; J7030; J7050; U0002

== ENCOUNTER 2022-11-08 07:45 | Emergency (ER) | payer MEDICAID, OTHER ==
[2022-11-08 08:04] VITALS: BP 131/95; PULSE 96
[2022-11-08] MEDS ORDERED: Triamcinolone Acetonide 40 MG/ML 1 ML SDV INJECT ONE (08:04)
== END 2022-11-08 08:28 | disposition home or self-care (01) ==
LOC: DL.ED 07:45
DX: M10.9 Gout, unspecified (principal); I10 Essential (primary) hypertension; Z72.0 Tobacco use; Z88.8 Allergy status to other drugs, medicaments and biological substances; Z79.899 Other long term (current) drug therapy
CPT/HCPCS: 99282; 99283; J3301

== ENCOUNTER 2024-06-13 17:31 | Observation (INO) | payer MEDICAID ==
[2024-06-13 18:01] LABS: HEMATOCRIT 44.5 % (40.0-54.0); HEMOGLOBIN 14.4 g/dL (14.0-18.0); MEAN CORPUSCULAR HEMOGLOBIN 30.4 pg (27.0-34.0); MEAN CORPUSCULAR HGB CONC 32.4 g/dL (33.0-35.0); MEAN CORPUSCULAR VOLUME 93.9 fL (80-100); PLATELET COUNT,PLT 614 10^3/uL (150-450); RED BLOOD CELL COUNT 4.74 10^6/uL (4.6-6.2); WHITE BLOOD CELL COUNT,WBC 11.1 10^3/uL (5.0-10.0)
[2024-06-13 18:02] LABS: BASOPHILS PERCENT AUTO 0.4 % (0.0-1.0); EOSINOPHILS PERCENT AUTO 2.4 % (1.0-3.0); MONOCYTES PERCENT AUTO 10.1 % (2-8); NEUTROPHILS PERCENT AUTO 68.1 % (42.2-75.2)
[2024-06-13 18:06] LABS: APPEARANCE,URINE CLEAR (CLEAR); BILIRUBIN,URINE NEGATIVE (NEGATIVE); COLOR,URINE YELLOW (YELLOW); GLUCOSE,URINE NEGATIVE (NEGATIVE); KETONES,URINE NEGATIVE (NEGATIVE); LEUKOCYTE ESTERASE,URINE NEGATIVE (NEGATIVE); NITRITE,URINE NEGATIVE (NEGATIVE); OCCULT BLOOD,URINE SMALL (NEGATIVE); PROTEIN,URINE NEGATIVE (NEGATIVE); UROBILINOGEN,URINE 0.2 mg/dL (0.2-1.0)
[2024-06-13 18:10] LABS: AMPHETAMINES,URINE NEGATIVE (NEGATIVE); BARBITURATES,URINE NEGATIVE (NEGATIVE); BENZODIAZEPINE,URINE NEGATIVE (NEGATIVE); MDMA (ECSTASY), URINE NEGATIVE (NEGATIVE); METHADONE,URINE NEGATIVE (NEGATIVE); METHAMPHETAMINES,URINE NEGATIVE (NEGATIVE); OPIATES,URINE NEGATIVE (NEGATIVE); OXYCODONE,URINE NEGATIVE (NEGATIVE); PHENCYCLIDINE,URINE NEGATIVE (NEGATIVE); TCA,URINE NEGATIVE (NEGATIVE)
[2024-06-13] MEDS: MVI, Adult with Vitamin K 10 ML, Folic Acid 1 MG, Thiamine 100 MG in Lactated Ringers 1... IV ONE (18:13)
[2024-06-13] MEDS: Ondansetron 4 MG/2 ML SDV IVPUSH ONE (18:13)
[2024-06-13 18:19] LABS: AMORPHOUS SEDIMENT,URINE FEW /HPF (NOT SEEN); BACTERIA,URINE FEW /HPF (0-FEW/HPF); EPITHELIAL CELLS,URINE FEW /HPF (NOT SEEN); MUCUS,URINE MODERATE /LPF (NOT SEEN); WBC,URINE 0-5 /HPF (0-5/HPF)
[2024-06-13 18:22] LABS: INR 0.9 (0.9-1.2); PROTHROMBIN TIME 9.6 SEC (9.0-12.0); PTT,PARTIAL THROMBOPLSTIN TIME 26.9 SEC (22.0-34.0)
[2024-06-13 18:24] LABS: A/G RATIO 0.64; ALANINE AMINOTRANSFERASE,ALT 9 U/L (16-63); ALBUMIN 3.2 g/dL (3.4-5.0); ALKALINE PHOSPHATASE 101 U/L (46-116); ANION GAP 15.9 mEq/L (7-13); ASPARTATE AMNIOTRANSFERASE,AST 12 U/L (15-37); BILIRUBIN TOTAL 0.2 mg/dL (0.2-1.0); BLOOD UREA NITROGEN,BUN 10 mg/dL (7-18); C-REACTIVE PROTEIN 4.16 ng/dL (<=0.50); CALCIUM 9.7 mg/dL (8.5-10.1); CARBON DIOXIDE,CO2 27 mmol/L (21-32); CHLORIDE,CL 101 mmol/L (98-107); EOSINOPHILS PERCENT MAN 2 % (1-3); EST CRCL DRUG DOSING (CG) 59.09 mL/min; ESTIMATED GFR 88 mL/min (>=60); GLUCOSE RANDOM 73 mg/dL (70-99); LIPASE 111 U/L (16-77); LYMPHOCYTES % ATYPICAL MANUAL 4 %; LYMPHOCYTES PERCENT MAN 18 % (20-50); MONOCYTES PERCENT MAN 6 % (2-8); POTASSIUM,K 3.9 mmol/L (3.5-5.1); PROTEIN TOTAL,TP 8.2 g/dL (6.4-8.2); SEG NEUTROPHILS PERCENT MAN 70 % (42-75); SODIUM,NA 140 mmol/L (136-145); URIC ACID 7.7 mg/dL (3.5-7.2)
[2024-06-13 18:25] LABS: ETHANOL BLOOD MEDICAL < 3 mg/dL (0); LACTIC ACID 1.9 mmol/L (0.4-2.0)
[2024-06-13] MEDS: Iopamidol 612 MG/ML 100 ML Bottle IVPUSH ONE (18:38)
[2024-06-13] MEDS: Colchicine 0.6 MG Tab PO ONE (19:01)
[2024-06-13] MEDS ORDERED: Acetaminophen 325 MG Tab PO PRN (21:45)
[2024-06-13] MEDS ORDERED: Ondansetron 4 MG/2 ML SDV IVPUSH PRN (21:45)
[2024-06-13] MEDS ORDERED: Temazepam 15 MG Cap PO PRN (21:45)
[2024-06-13] MEDS ORDERED: Naloxone 2 MG/2 ML Syringe IVPUSH PRN (21:45)
[2024-06-13] MEDS ORDERED: Albuterol/Ipratropium 3.0-0.5 MG/3 ML Neb Soln NEB PRN (21:45)
[2024-06-13] MEDS ORDERED: Metoclopramide 10 MG/2 ML SDV IV PRN (21:45)
[2024-06-13] MEDS ORDERED: Sennosides/Docusate Sodium 50-8.6 MG Tab PO PRN (21:45)
[2024-06-13] MEDS ORDERED: Magnesium Hydroxide 400 MG/5 ML Susp 30 ML Cup PO PRN (21:45)
[2024-06-13] MEDS ORDERED: Polyethylene Glycol 3350 Powder 17 GM Packet PO PRN (21:45)
[2024-06-13] MEDS ORDERED: HYDROmorphone 0.5 MG/0.5 ML Syringe IVPUSH PRN (21:45)
[2024-06-13] MEDS ORDERED: hydrALAZINE 20 MG/ML SDV IVPUSH PRN (21:48)
[2024-06-13] MEDS ORDERED: Metoprolol Tartrate 5 MG/5 ML SDV IVPUSH PRN (21:48)
[2024-06-13] MEDS: Scopalamine 1mg/3day Transdermal Patch TOP ONE (22:45)
[2024-06-13] MEDS: Pantoprazole 40 MG Vial IVPUSH ONE (22:47)
[2024-06-13] MEDS: Sodium Chloride 0.9% 10 ML Syringe FLUSH PRN (22:47)
[2024-06-13] MEDS: Dexamethasone 4 MG/ML SDV IVPUSH ONE (22:52)
[2024-06-13] MEDS: diphenhydrAMINE 50 MG/ML SDV IVPUSH ONE (22:55)
[2024-06-13 22:58] LABS: CHOLESTEROL HDL 47 mg/dL (40-59); CHOLESTEROL LDL CALCULATED 87 mg/dL (0-100); CHOLESTEROL TOTAL 148 mg/dL (0-199); LACTATE DEHYDROGENASE,LDH 114 U/L (85-227); TRIGLYCERIDES 70 mg/dL (0-149)
[2024-06-14] MEDS: Ampicillin/Sulbactam Na 1.5 GM in Sodium Chloride 0.9% 100 ML IV SCH (00:10)
[2024-06-14 06:29] LABS: HEMATOCRIT 42.2 % (40.0-54.0); HEMOGLOBIN 13.4 g/dL (14.0-18.0); MEAN CORPUSCULAR HEMOGLOBIN 30.1 pg (27.0-34.0); MEAN CORPUSCULAR HGB CONC 31.8 g/dL (33.0-35.0); MEAN CORPUSCULAR VOLUME 94.8 fL (80-100); PLATELET COUNT,PLT 659 10^3/uL (150-450); RED BLOOD CELL COUNT 4.45 10^6/uL (4.6-6.2); WHITE BLOOD CELL COUNT,WBC 10.4 10^3/uL (5.0-10.0)
[2024-06-14 06:37] LABS: BASOPHILS PERCENT AUTO 0.3 % (0.0-1.0); EOSINOPHILS PERCENT AUTO 0.3 % (1.0-3.0); MONOCYTES PERCENT AUTO 1.8 % (2-8); NEUTROPHILS PERCENT AUTO 86.6 % (42.2-75.2)
[2024-06-14 06:51] LABS: ALBUMIN 2.8 g/dL (3.4-5.0); ANION GAP 10.8 mEq/L (7-13); BILIRUBIN TOTAL 0.3 mg/dL (0.2-1.0); BUN/CREATININE RATIO 8.2 (No establ ref range); C-REACTIVE PROTEIN 2.79 ng/dL (<=0.50); CALCIUM 9.5 mg/dL (8.5-10.1); CREATININE 1.1 mg/dL (0.70-1.30); EST CRCL DRUG DOSING (CG) 55.52 mL/min; MAGNESIUM 1.8 mg/dL (1.8-2.4); POTASSIUM,K 4.8 mmol/L (3.5-5.1); PROTEIN TOTAL,TP 7.2 g/dL (6.4-8.2)
[2024-06-14 07:17] LABS: A/G RATIO 0.64
[2024-06-14 08:24] LABS: BAND PERCENT MAN 1 %; LYMPHOCYTES PERCENT MAN 11 % (20-50); MONOCYTES PERCENT MAN 1 % (2-8); SEG NEUTROPHILS PERCENT MAN 87 % (42-75)
[2024-06-14] MEDS: Colchicine 0.6 MG Tab PO SCH (09:50)
[2024-06-14] MEDS: Famotidine 20 MG Tab PO SCH (09:50)
[2024-06-14] MEDS: Dexamethasone 4 MG Tab PO SCH (09:50)
[2024-06-14] MEDS: Nicotine 21 MG/24 Hr Patch TRDERM SCH (09:51)
[2024-06-14] MEDS: Enoxaparin 40 MG/0.4 ML Syringe SUBCUT SCH (09:51)
[2024-06-14] MEDS: Bacitracin/Neomycin/Polymyxin B Oint 28.4 GM Tube TOP SCH (09:51)
[2024-06-14] MEDS: Acetaminophen/oxyCODONE 325-5 MG Tab PO PRN (20:21)
[2024-06-14] MEDS: Check NICOTINE Patch TRDERM SCH (20:36)
[2024-06-14] MEDS: VANCOmycin 1.5 GM/300 ML 300 ML IV SCH (22:57)
[2024-06-15] MEDS: hydrOXYzine HCl 25 MG Tab PO PRN (01:05)
[2024-06-15 06:23] LABS: HEMATOCRIT 35.4 % (40.0-54.0); HEMOGLOBIN 11.4 g/dL (14.0-18.0); MEAN CORPUSCULAR HEMOGLOBIN 30.7 pg (27.0-34.0); MEAN CORPUSCULAR HGB CONC 32.2 g/dL (33.0-35.0); MEAN CORPUSCULAR VOLUME 95.4 fL (80-100); PLATELET COUNT,PLT 586 10^3/uL (150-450); RED BLOOD CELL COUNT 3.71 10^6/uL (4.6-6.2); WHITE BLOOD CELL COUNT,WBC 14.7 10^3/uL (5.0-10.0)
[2024-06-15 06:34] LABS: BASOPHILS PERCENT AUTO 0.3 % (0.0-1.0); EOSINOPHILS PERCENT AUTO 1.3 % (1.0-3.0); LYMPHOCYTES PERCENT AUTO 20.8 % (20.5-50.1); MONOCYTES PERCENT AUTO 9.1 % (2-8); NEUTROPHILS PERCENT AUTO 68.5 % (42.2-75.2)
[2024-06-15 06:47] LABS: ALBUMIN 2.5 g/dL (3.4-5.0); ANION GAP 12.2 mEq/L (7-13); BILIRUBIN TOTAL 0.2 mg/dL (0.2-1.0); C-REACTIVE PROTEIN 1.11 ng/dL (<=0.50); CALCIUM 8.7 mg/dL (8.5-10.1); EST CRCL DRUG DOSING (CG) 61.07 mL/min; POTASSIUM,K 4.2 mmol/L (3.5-5.1); PROTEIN TOTAL,TP 6.2 g/dL (6.4-8.2)
[2024-06-15 06:48] LABS: A/G RATIO 0.68
[2024-06-15 06:51] LABS: EOSINOPHILS PERCENT MAN 3 % (1-3); LYMPHOCYTES PERCENT MAN 18 % (20-50); MONOCYTES PERCENT MAN 12 % (2-8); SEG NEUTROPHILS PERCENT MAN 67 % (42-75)
[2024-06-15 12:12] VITALS: BP 106/61; PULSE 86
== END 2024-06-15 11:30 | disposition home or self-care (01) ==
LOC: DL.ED 17:31 → DL.MS 20:42 → DL.ED 20:51
PROVIDERS: ADMIT Internal Medicine; ATTEND Internal Medicine
DX: K85.90 Acute pancreatitis without necrosis or infection, unspecified (principal); I10 Essential (primary) hypertension; F17.210 Nicotine dependence, cigarettes, uncomplicated; Z79.899 Other long term (current) drug therapy
CPT/HCPCS: 36415; 74177; 80053; 80061; 80202; 80305; 80307; 81001; 82272; 83605; 83615; 83690; 83735; 84145; 84484; 84550; 85025; 85610; 85730; 86140; 86850; 86900; 86901; 87040; 87070; 87077; 87186; 96365; 96375; 99223; 99232; 99239; 99284; 99285; A9270; J0295; J1100; J1200; J1650; J2405; J2470; J3372; J3411; J3490; J7050; J7120; J8540; Q9967; 96366; 96367; 96372; 96376; G0378